=== PATIENT | female | born 1980 ===

== ENCOUNTER 2017-03-16 15:09 | Emergency (ER) | payer OTHER ==
[2017-03-16 15:09] VITALS: BMI 39.6
[2017-03-16 15:44] VITALS: TEMP 98
--- NOTE | 2017-03-16 16:14 | C.PDOC ---
History Of Present Illness 36 y/o female with Hx of Asthma brought to ED by EMS with complaints of chest tightness and sob beginning today. Patient also reports feeling anxious and tingling through fingers as well as cramping through her hands. Patient states suddenly feeling chest tightness and tried albuterol multiple of times today with no relief and decided to call 911 for sob. Upon arrival to ED vital signs were stable an patient denies headache, weakness or any other complaints at this time. Time Seen by Provider: 03/16/17 15:11 Chief Complaint (Nursing): Anxiety History Per: Patient History/Exam Limitations: no limitations Onset/Duration Of Symptoms: Days Current Symptoms Are (Timing): Still Present Past Medical History Reviewed: Historical Data, Nursing Documentation, Vital Signs Vital Signs: Last Vital Signs Temp 98.0 F 03/16/17 15:42 Pulse 95 H 03/16/17 15:42 Resp 22 03/16/17 15:42 BP 143/74 03/16/17 15:42 Pulse Ox 98 03/16/17 16:20 - Medical History PMH: Asthma, CHF, Diabetes, HTN (" MY DOCTOR TOOK ME OFF MY MEDICATION BP IS BETTER WITH WEIGHT LOSS"), Hypercholesterolemia ("MY DOCTOR DOES NOT WANT ME ON MEDICATION"), Kidney Stones, Pancreatitis (MAYBE), Chronic Kidney Disease, Chronic Pain (chr. lumbar radiculopathy) Surgical History: Endoscopy, (x 1) - [facility] Procedures CLOSED [ENDOSCOPIC] BIOPSY OF LARYNX (04/14/14) DESTRUCT LARYNX LES NEC (07/25/13) LARYGNOSCOPY AND OTH TRACHEOSCOPY (07/25/13) Family History: States: Unknown Family Hx - Social History Hx Tobacco Use: Yes Hx Alcohol Use: Yes Hx Substance Use: No (Marijuana) - Immunization History Hx Tetanus Toxoid Vaccination: No Hx Influenza Vaccination: No Hx Pneumococcal Vaccination: No Review Of Systems Except As Marked, All Systems Reviewed And Found Negative. Constitutional: Negative for: Fever, Chills, Weakness Cardiovascular: Positive for: Chest Pain Respiratory: Positive for: Shortness of Breath. Negative for: Cough Gastrointestinal: Negative for: Nausea, Vomiting, Diarrhea Skin: Negative for: Rash Neurological: Negative for: Numbness, Headache Physical Exam - Physical Exam Appears: Agitated Skin: Warm (Face flush) Head: Atraumatic, Normacephalic Eye(s): bilateral: Other (Watery Eyes) Oral Mucosa: Moist Chest: Symmetrical Cardiovascular: Rhythm Regular, No Murmur Respiratory: Normal Breath Sounds, No Rales, No Rhonchi, No Wheezing Gastrointestinal/Abdominal: Soft, No Guarding, No Rebound, Other (Obese) Extremity: Normal ROM, Capillary Refill (<2 seconds) Neurological/Psych: Oriented x3 Gait: Steady ED Course And Treatment ECG Rhythm: Sinus Rhythm (Normal) O2 Sat by Pulse Oximetry: 98 (RA) Pulse Ox Interpretation: Normal Medical Decision Making Medical Decision Making: Patient will be re-evaluated Disposition Counseled Patient/Family Regarding: Diagnosis, Need For Followup - Disposition Referrals: [facility] [Outside] Disposition: HOME/ ROUTINE Disposition Time: 16:24 Condition: STABLE Instructions: Dyspnea (ED), Hyperventilation (ED) Forms: General Discharge Instructions, Work Excuse - POA Present On Arrival: None - Clinical Impression Clinical Impression: Shortness of breath, Asthma, Hyperventilation - PA / REHAB DIRECTOR / Resident Statement MD/DO has reviewed & agrees with the documentation as recorded. MD/DO has examined the patient and agrees with the treatment plan. - Scribe Statement The provider has reviewed the documentation as recorded by the Lynneibricarda Lubin All medical record entries made by the Cezar were at my direction and personally dictated by me. I have reviewed the chart and agree that the record accurately reflects my personal performance of the history, physical exam, medical decision making, and the department course for this patient. I have also personally directed, reviewed, and agree with the discharge instructions and disposition.
[2017-03-16 16:37] VITALS: BP 122/78; PULSE 87; RESP 18; O2SAT 97
== END 2017-03-16 16:35 | disposition home or self-care (01) ==
LOC: C.ER 15:09
DX: J45.909 Unspecified asthma, uncomplicated (principal); R06.02 Shortness of breath; R06.4 Hyperventilation

== ENCOUNTER 2018-02-14 11:17 | Emergency (ER) | payer BC ==
[2018-02-14 11:17] VITALS: BMI 39.6
[2018-02-14] MEDS ORDERED: Sodium Chloride 0.9% 1,000 ML IV ONE (12:47)
[2018-02-14] MEDS ORDERED: Sodium Chloride 0.9% 1,000 ML ONE (12:54)
--- NOTE | 2018-02-14 12:57 | C.PDOC ---
History Of Present Illness 37 year old female with a history of diabetes and HTN, asthma and hypercholesterolemia presents to the emergency department with complaints of left flank pain which started last night, progressively worsening throughout the night. Patient reports she took 800mg of Motrin with no relief. Patient reports seeing a spot of blood in her urine this morning. Patient is experiencing associated nausea, but denies vomiting or prior history of any similar symptoms. Time Seen by Provider: 02/14/18 12:20 Chief Complaint (Nursing): Female Genitourinary History Per: Patient History/Exam Limitations: no limitations Onset/Duration Of Symptoms: Days (1) Current Symptoms Are (Timing): Still Present Quality Of Discomfort: "Pain" Associated Symptoms: Nausea, Urinary Symptoms (hematuria). denies: Vomiting Past Medical History Reviewed: Historical Data, Nursing Documentation, Vital Signs Vital Signs: Last Vital Signs Temp 97.9 F 02/14/18 16:09 Pulse 72 02/14/18 16:09 Resp 18 02/14/18 16:09 BP 160/84 H 02/14/18 16:09 Pulse Ox 96 02/16/18 10:21 - Medical History PMH: Asthma, CHF, Diabetes, HTN (" MY DOCTOR TOOK ME OFF MY MEDICATION BP IS BETTER WITH WEIGHT LOSS"), Hypercholesterolemia ("MY DOCTOR DOES NOT WANT ME ON MEDICATION"), Kidney Stones, Pancreatitis (MAYBE), Chronic Kidney Disease, Chronic Pain (chr. lumbar radiculopathy) Surgical History: Endoscopy, (x 1) - [facility] Procedures CLOSED [ENDOSCOPIC] BIOPSY OF LARYNX (04/14/14) DESTRUCT LARYNX LES NEC (07/25/13) LARYGNOSCOPY AND OTH TRACHEOSCOPY (07/25/13) Family History: States: No Known Family Hx - Social History Hx Tobacco Use: Yes Hx Alcohol Use: No Hx Substance Use: No (Marijuana) - Immunization History Hx Tetanus Toxoid Vaccination: Yes Hx Influenza Vaccination: No Hx Pneumococcal Vaccination: No Review Of Systems Gastrointestinal: Positive for: Nausea. Negative for: Vomiting Genitourinary: Positive for: Hematuria Musculoskeletal: Positive for: Back Pain (left flank) Physical Exam - Physical Exam Appears: Non-toxic, In Acute Distress (tearful, visibly in pain) Skin: Warm, Dry Head: Atraumatic, Normacephalic Neck: Supple Chest: Symmetrical Cardiovascular: Rhythm Regular, No Murmur Respiratory: Normal Breath Sounds, No Rales, No Rhonchi, No Wheezing Gastrointestinal/Abdominal: Bowel Sounds (good), Soft, No Tenderness, No Distention, No Guarding Back: CVA Tenderness, No Vertebral Tenderness (no midline vertebral tenderness) , Other (left flank tenderness) Neurological/Psych: Oriented x3, Normal Speech, Normal Cognition, Normal Motor, Normal Sensation ED Course And Treatment - Laboratory Results Result Diagrams: 02/14/18 12:55 02/14/18 12:55 Urine POC: Negative O2 Sat by Pulse Oximetry: 96 (RA) Pulse Ox Interpretation: Normal Progress Note: Plan: CT Abdomen and Pelvis. CMP. Liapse. CBC. NaCl IV Fluids. Toradol 30mg IVP. Urine Culture. Urinalysis Medical Decision Making Medical Decision Makin pt feeling much better after toradol, lying comfortably on bed using phone. .left flank muscle spasm palpated, ct neg for acute findings. ua +for glucose, no signs infection. d/c pt home with naproxen and flexeril. f/u pmd. Disposition Counseled Patient/Family Regarding: Studies Performed, Diagnosis, Need For Followup, Rx Given - Disposition Referrals: Dolores Tinoco MD [Staff Provider] - Disposition: HOME/ ROUTINE Disposition Time: 15:32 Condition: IMPROVED Additional Instructions: Please apply warm compresses to painful area several times a day. Avoid heavy lifting. Take medications as prescribed. Muscle relaxant makes you sleepy- do not work or drive while taking. Prescriptions: Cyclobenzaprine [Cyclobenzaprine HCl] 10 mg PO Q8 #9 tab Naproxen 500 mg PO BID #20 tab Instructions: Flank Pain (DC), Muscle Spasms (DC) Forms: General Discharge Instructions, Work/School/Gym Excuse, [facility] (Nicaraguan) - Clinical Impression Clinical Impression: Back muscle spasm - PA / PAYABLE PROCESSOR / Resident Statement MD/DO has reviewed & agrees with the documentation as recorded. - Scribe Statement The provider has reviewed the documentation as recorded by the Scribe (Delta Velasco) All medical record entries made by the Scribe were at my direction and personally dictated by me. I have reviewed the chart and agree that the record accurately reflects my personal performance of the history, physical exam, medical decision making, and the department course for this patient. I have also personally directed, reviewed, and agree with the discharge instructions and disposition.
[2018-02-14 13:03] LABS: BASO % 0.4 % (0.0-2.0); EOS # 0.1 K/uL (0.0-0.7); EOS % 0.7 % (0.0-4.0); HEMOGLOBIN 15.3 g/dL (11.0-16.0); LYMPH # 3.2 K/uL (1.0-4.3); LYMPH % 32.9 % (20.0-40.0); MEAN CORPUSCULAR HEMOGLOBIN 31.4 pg (27.0-31.0); MEAN CORPUSCULAR HGB CONC 35.3 g/dL (33.0-37.0); MEAN PLATELET VOLUME 9.8 fL (7.2-11.7); MONO # 0.5 K/uL (0.0-0.8); MONO % 5.4 % (0.0-10.0); NEUT % 60.6 % (50.0-75.0); RBC 4.86 Mil/uL (3.80-5.20); RED CELL DISTRIBUTION WIDTH 13.3 % (11.5-14.5); WHITE BLOOD COUNT 9.8 K/uL (4.8-10.8)
[2018-02-14 13:14] LABS: ALB/GLOB RATIO 1.3 (1.0-2.1); ALBUMIN 4.1 g/dL (3.5-5.0); ALT/SGPT 24 U/L (9-52); AST/SGOT 18 U/L (14-36); BLOOD UREA NITROGEN 9 mg/dL (7-17); CALCIUM 9.3 mg/dl (8.6-10.4); GFR AFRICAN-AMERICAN > 60; GFR NON-AFRICAN AMERICAN > 60; LIPASE 347 U/L (23-300)
[2018-02-14 13:15] LABS: MEAN CELL VOLUME 89.1 fL (81.0-99.0)
[2018-02-14 13:22] LABS: SQUAMOUS EPITHIAL < 1 /hpf (0-5); URINE BILIRUBIN NEGATIVE (NEGATIVE); URINE BLOOD NEGATIVE (NEGATIVE); URINE CLARITY Clear (Clear); URINE COLOR Yellow (YELLOW); URINE GLUCOSE (UA) 3+ mg/dL (Normal); URINE LEUKOCYTE ESTERASE NEG Leu/uL (Negative); URINE PROTEIN NEGATIVE (NEGATIVE); URINE UROBILINOGEN NORMAL mg/dL (0.2-1.0)
[2018-02-14 14:04] VITALS: RESP 18
--- NOTE | 2018-02-14 14:55 | CT ---
PROCEDURE: CT Abdomen and Pelvis without intravenous contrast HISTORY: left flank pain, hematuria COMPARISON: 11/01/2015 TECHNIQUE: Multiple contiguous axial images were performed through the abdomen and pelvis without the use intravenous contrast. Subsequently, sagittal and coronal reformatted images were obtained. Radiation dose: Total exam DLP = 1106 mGy-cm. This CT exam was performed using one or more of the following dose reduction techniques: Automated exposure control, adjustment of the mA and/or kV according to patient size, and/or use of iterative reconstruction technique. FINDINGS: LOWER THORAX: Unremarkable. LIVER: Unremarkable. No gross lesion or ductal dilatation. GALLBLADDER AND BILE DUCTS: Unremarkable. PANCREAS: Unremarkable. No gross lesion or ductal dilatation. SPLEEN: Unremarkable. Splenule. ADRENALS: Unremarkable. No mass. KIDNEYS AND URETERS: Unremarkable. No hydronephrosis. No solid mass. VASCULATURE: Unremarkable. No aortic aneurysm. BOWEL: Unremarkable. No obstruction. No gross mural thickening. Scattered colonic diverticuli. APPENDIX: Unremarkable. Normal appendix. PERITONEUM: Unremarkable. No free fluid. No free air. LYMPH NODES: Few shotty inguinal and para-aortic lymph nodes. Few shotty mesenteric lymph nodes in the upper abdomen. BLADDER: Distended urinary bladder. REPRODUCTIVE: Heterogeneous uterus and bilateral adnexa. Small left adnexal cyst. BONES: Degenerative changes in the spine. OTHER FINDINGS: Calcified phleboliths in the pelvis. IMPRESSION: Negative acute. Additional findings as above.
[2018-02-14 16:10] VITALS: BP 160/84; PULSE 72; TEMP 97.9
[2018-02-16 10:22] VITALS: O2SAT 96
== END 2018-02-14 16:09 | disposition home or self-care (01) ==
LOC: C.ER 11:17
DX: M62.830 Muscle spasm of back (principal); E11.9 Type 2 diabetes mellitus without complications; E78.00 Pure hypercholesterolemia, unspecified; Z72.0 Tobacco use
CPT/HCPCS: 74176; 80053; 81001; 83690; 85025; 87086; 96361; 96374; 99285; J1885; J7040

== ENCOUNTER 2018-06-12 13:43 | Emergency (ER) | payer BC ==
[2018-06-12 13:43] VITALS: BMI 39.6
[2018-06-12 14:05] VITALS: RESP 18
--- NOTE | 2018-06-12 15:02 | RAD ---
PROCEDURE: Left Knee Radiographs. HISTORY: COMPARISON: None available FINDINGS: BONES: No acute displaced fracture. JOINTS: No dislocation. JOINT EFFUSION: No significant joint effusion. OTHER FINDINGS: None. IMPRESSION: No acute displaced fracture, dislocation, or significant joint effusion identified. If symptoms persist, or if there is continued clinical concern, x-ray follow-up in 7-10 days should be considered.
--- NOTE | 2018-06-12 16:06 | VASCLAB ---
Date of service: 06/12/2018 PROCEDURE: Left Lower Extremity Venous Duplex Exam. HISTORY: left leg pain, r/o dvt PRIORS: None. TECHNIQUE: Left common femoral, femoral, popliteal and posterior tibial, peroneal and great saphenous veins were evaluated. Flow was assessed with color Doppler, compressibility, assessment of phasic flow and augmentation response. Report prepared by Pete Zimmerman, HOSSEIN, RVT FINDINGS: LEFT: 1. Common Femoral Vein: 1.1. Compressibility - Fully compressible: Thrombus - None : Flow - Phasic: Augmentation -Normal: Reflux - None. 2. Femoral Vein: 2.1. Compressibility - Fully compressible: Thrombus - None: Flow - Phasic: Augmentation -Normal: Reflux - None. 3. Popliteal Vein: 3.1. Compressibility - Fully compressible: Thrombus - None: Flow - Phasic: Augmentation -Normal: Reflux - None. 4. Posterior Tibial Vein: 4.1. Compressibility - Fully compressible: Thrombus - None: Flow - Phasic: Augmentation -Normal: Reflux - None. 5. Peroneal Vein: 5.1. Compressibility - Fully compressible: Thrombus - None: Flow - Phasic: Augmentation -Normal: Reflux - None. 6. Great Saphenous Vein: 6.1. Compressibility - Fully compressible: Thrombus - None: Flow - Phasic: Augmentation - Normal: Reflux - None. OTHER FINDINGS: IMPRESSION: No evidence of deep or superficial vein thrombosis of the left lower extremity with excellent venous flow. Normal valve function noted of the left side. Normal venous flow noted in the right common femoral vein.
--- NOTE | 2018-06-12 16:13 | C.PDOC ---
History Of Present Illness 38 year old female presents to the ED for evaluation of left knee pain that radiates down left leg since today. 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 She denies chest pain, shortness of breath, or any specific injuries at this time. Time Seen by Provider: 06/12/18 14:01 Chief Complaint (Nursing): Lower Extremity Problem/Injury History Per: Patient History/Exam Limitations: no limitations Onset/Duration Of Symptoms: Hrs Current Symptoms Are (Timing): Still Present - Knee Description Of Injury: denies: Fell, Struck With Object, Struck Against Object, Twisted Past Medical History Reviewed: Historical Data, Nursing Documentation, Vital Signs Vital Signs: Last Vital Signs Temp 98.6 F 06/12/18 16:40 Pulse 70 06/12/18 16:40 Resp 18 06/12/18 16:40 BP 143/83 06/12/18 16:40 Pulse Ox 98 06/12/18 22:09 - Medical History PMH: Asthma, CHF, Diabetes, HTN, Hypercholesterolemia, Kidney Stones, Pancreatitis (MAYBE), Chronic Kidney Disease, Chronic Pain (chr. lumbar radiculopathy) Surgical History: Endoscopy, (x 1) - [facility] Procedures CLOSED [ENDOSCOPIC] BIOPSY OF LARYNX (04/14/14) DESTRUCT LARYNX LES NEC (07/25/13) LARYGNOSCOPY AND OTH TRACHEOSCOPY (07/25/13) Family History: States: Unknown Family Hx - Social History Hx Tobacco Use: Yes Hx Alcohol Use: Yes Hx Substance Use: No - Immunization History Hx Tetanus Toxoid Vaccination: Yes Hx Influenza Vaccination: No Hx Pneumococcal Vaccination: No Review Of Systems Cardiovascular: Negative for: Chest Pain Respiratory: Negative for: Shortness of Breath Musculoskeletal: Positive for: Leg Pain (left), Other (left knee pain ) Physical Exam - Physical Exam Appears: Non-toxic, No Acute Distress, Other (obese) Skin: Normal Color, Warm, Dry Head: Atraumatic, Normacephalic Eye(s): bilateral: Normal Inspection Oral Mucosa: Moist Neck: Supple Chest: Symmetrical, No Deformity, No Tenderness Cardiovascular: Rhythm Regular, No Murmur Respiratory: Normal Breath Sounds, No Rales, No Rhonchi, No Wheezing Extremity: Tenderness (to left patella and at the medial proximal calf on palpation ), Capillary Refill (less than 2 seconds ), Swelling (mild, at left patella), No Other (erythema ) Pulses: Left Dorsalis Pedis: Normal, Right Dorsalis Pedis: Normal Neurological/Psych: Oriented x3, Normal Speech, Normal Cognition, Normal Sensation ED Course And Treatment O2 Sat by Pulse Oximetry: 98 (on RA) Pulse Ox Interpretation: Normal - Other Rad knee XR X-Ray: Viewed By Me, Read By Radiologist Interpretation: PROCEDURE: Left Knee Radiographs. HISTORY: COMPARISON: None available. FINDINGS: BONES: No acute displaced fracture. JOINTS: No dislocation. JOINT EFFUSION: No significant joint effusion. OTHER FINDINGS: None. IMPRESSION: No acute displaced fracture, dislocation, or significant joint effusion identified. If symptoms persist, or if there is continued clinical concern, x-ray follow-up in 7-10 days should be considered. Progress Note: Left knee XR and Venous Duplex Scan left lower extremity ordered and reviewed. Results are negative. Motrin PO given. MASOOD wrap applied. On reassessment, patient is resting comfortably, showing no signs of distress and is stable for discharge. Patient is advised to f/u with orthopedic care within 1 week for further evaluation. Disposition Counseled Patient/Family Regarding: Studies Performed, Diagnosis, Need For Followup, Rx Given - Disposition Referrals: Dolores Tinoco MD [Staff Provider] - Chadd Cota III, MD [Staff Provider] - [facility] [Outside] Disposition: HOME/ ROUTINE Disposition Time: 16:10 Condition: STABLE Additional Instructions: FOLLOW UP WITH ORTHOPEDICS WITHIN 1 WEEK USE MEDICATION FOR PAIN NEEDED RETURN TO EMERGENCY ROOM IF SYMPTOMS WORSEN Prescriptions: Naproxen 375 mg PO BID PRN #20 tablet PRN Reason: pain Instructions: Bursitis (DC) Forms: [employer] (Romanian) Print Language: ICELANDIC - POA Present On Arrival: None - Clinical Impression Clinical Impression: Left knee pain, Bursitis of left knee - Scribe Statement The provider has reviewed the documentation as recorded by the Scribe (Arlin Dc) Provider Attestation: All medical record entries made by the Scribe were at my direction and personally dictated by me. I have reviewed the chart and agree that the record accurately reflects my personal performance of the history, physical exam, medical decision making, and the department course for this patient. I have also personally directed, reviewed, and agree with the discharge instructions and disposition.
[2018-06-12 16:41] VITALS: BP 143/83; PULSE 70; TEMP 98.6
[2018-06-12 22:06] VITALS: O2SAT 98
== END 2018-06-12 16:43 | disposition home or self-care (01) ==
LOC: C.ER 13:43
DX: M70.52 Other bursitis of knee, left knee (principal); M25.562 Pain in left knee

== ENCOUNTER 2018-11-15 17:20 | Emergency (ER) | payer BC ==
[2018-11-15 17:20] VITALS: BMI 39.6
[2018-11-15 17:32] VITALS: BP 155/85; PULSE 78; RESP 18; TEMP 98.1; O2SAT 98
--- NOTE | 2018-11-15 18:46 | C.PDOC ---
History Of Present Illness Patient is a 38 year old female who presents to the ED c/o dental pain for the last 3 days. Patient states that the pain has worsened today and notes that she does have a broken tooth. Patient denies any fever or pain to the maxillary sinus area. Time Seen by Provider: 11/15/18 17:35 Chief Complaint (Nursing): Dental Pain History Per: Patient History/Exam Limitations: no limitations Onset/Duration Of Symptoms: Days (3) Current Symptoms Are (Timing): Still Present Quality: Positive for: "Pain" (dental ) Recent travel outside of the [place]: No Additional History Per: Patient Past Medical History Reviewed: Historical Data, Nursing Documentation, Vital Signs Vital Signs: Last Vital Signs Temp 98.1 F 11/15/18 17:28 Pulse 78 11/15/18 17:28 Resp 18 11/15/18 17:28 BP 155/85 H 11/15/18 17:28 Pulse Ox 98 11/15/18 17:28 - Medical History PMH: Asthma, CHF, Diabetes, HTN, Hypercholesterolemia, Kidney Stones, Pancreatitis (MAYBE), Chronic Kidney Disease, Chronic Pain (chr. lumbar radiculopathy) Surgical History: Endoscopy, (x 1) - [facility] Procedures CLOSED [ENDOSCOPIC] BIOPSY OF LARYNX (04/14/14) DESTRUCT LARYNX LES NEC (07/25/13) LARYGNOSCOPY AND OTH TRACHEOSCOPY (07/25/13) Family History: States: Unknown Family Hx - Social History Hx Tobacco Use: Yes Hx Alcohol Use: Yes Hx Substance Use: Yes - Immunization History Hx Tetanus Toxoid Vaccination: Yes Hx Influenza Vaccination: Yes Hx Pneumococcal Vaccination: Yes Review Of Systems Except As Marked, All Systems Reviewed And Found Negative. Constitutional: Negative for: Fever ENT: Negative for: Other (pain to maxillary sinus area. positive for dental pain ) Physical Exam - Physical Exam Appears: Non-toxic, No Acute Distress Skin: Normal Color, Warm, Dry Head: Atraumatic, Normacephalic Oral Mucosa: Moist Teeth: Other (Tooth number 4 is broken with exposed root, no palpable abcess) Neck: Normal ROM, Supple Chest: Symmetrical, No Deformity Cardiovascular: Rhythm Regular Respiratory: Normal Breath Sounds Gastrointestinal/Abdominal: Normal Exam, Soft, No Tenderness Extremity: Normal ROM Neurological/Psych: Oriented x3 ED Course And Treatment O2 Sat by Pulse Oximetry: 98 (on RA) Pulse Ox Interpretation: Normal Medical Decision Making Medical Decision Making: Plan: Cleocin 300mg PO Ultram 50mg PO Disposition - Disposition Referrals: Glenroy Kaplan, [Non-Staff] - Disposition: HOME/ ROUTINE Disposition Time: 18:00 Condition: GOOD Additional Instructions: LACEY STALLINGS, thank you for letting us take care of you today. Your provider was Weston Santoro DO and you were treated for DENTAL PAIN. The emergency medical care you received today was directed at your acute symptoms. If you were prescribed any medication, please fill it and take as directed. It may take several days for your symptoms to resolve. Return to the Emergency Department if your symptoms worsen, do not improve, or if you have any other problems. Please contact your doctor or call one of the physicians/clinics you have been referred to that are listed on the Patient Visit Information form that is included in your discharge packet. Bring any paperwork you were given at discharge with you along with any medications you are taking to your follow up visit. Our treatment cannot replace ongoing medical care by a primary care provider outside of the emergency department. Thank you for allowing the [facility] team to be part of your care today. Follow up with your dentist in 1-2 days for re-evaluation and further management. Prescriptions: Clindamycin [Cleocin] 300 mg PO Q6 #20 cap traMADol [Ultram] 50 mg PO Q8 PRN #15 tab PRN Reason: Pain, Severe (8-10) Instructions: Dental Pain (DC) Forms: [employer] (Uzbek) - Clinical Impression Clinical Impression: Dental caries - Scribe Statement The provider has reviewed the documentation as recorded by the Cezar Sanders All medical record entries made by the Lynneibricarda were at my direction and personally dictated by me. I have reviewed the chart and agree that the record accurately reflects my personal performance of the history, physical exam, medical decision making, and the department course for this patient. I have also personally directed, reviewed, and agree with the discharge instructions and disposition.
== END 2018-11-15 18:02 | disposition home or self-care (01) ==
LOC: C.ER 17:20
DX: K02.9 Dental caries, unspecified (principal)

== ENCOUNTER 2018-12-12 10:50 | Emergency (ER) | payer BC | END 2018-12-12 14:04 | disposition home or self-care (01) | LOC: C.ER 10:50 ==

== ENCOUNTER 2019-02-19 18:23 | Emergency (ER) | payer SELFPAY ==
[2019-02-19 18:47] VITALS: BMI 40.0
[2019-02-19 18:52] VITALS: O2SAT 98
[2019-02-19] MEDS ORDERED: Albuterol-Ipratrop 3 mg / 0.5 (3 ml) UD INH STA ×4 (19:05→23:20)
--- NOTE | 2019-02-19 19:13 | C.PDOC ---
History Of Present Illness Patient is a 38 year old female biba, with a PMHx of asthma, who presents to the ED c/o cough, congestion, and anterior chest wall tightness that began today while at work. Patient denies any fever, chills, SOB. Chief Complaint (Nursing): Cough, Cold, Congestion History Per: Patient History/Exam Limitations: no limitations Onset/Duration Of Symptoms: Hrs Current Symptoms Are (Timing): Still Present Recent travel outside of the [place]: No Additional History Per: Patient Past Medical History Reviewed: Historical Data, Nursing Documentation, Vital Signs Vital Signs: Last Vital Signs Temp 98.0 F 02/19/19 18:48 Pulse 87 02/19/19 18:48 Resp 20 02/19/19 18:48 BP 142/81 02/19/19 18:48 Pulse Ox 98 02/19/19 18:48 Primary Care Provider: Dolores Tinoco - Medical History PMH: Asthma, CHF, Diabetes, HTN, Hypercholesterolemia, Kidney Stones, Pancreatitis (MAYBE), Chronic Kidney Disease, Chronic Pain (chr. lumbar radiculopathy) Surgical History: Endoscopy, (x 1) - [facility] Procedures CLOSED [ENDOSCOPIC] BIOPSY OF LARYNX (04/14/14) DESTRUCT LARYNX LES NEC (07/25/13) LARYGNOSCOPY AND OTH TRACHEOSCOPY (07/25/13) Family History: States: Unknown Family Hx - Social History Hx Tobacco Use: Yes Hx Alcohol Use: Yes Hx Substance Use: Yes - Immunization History Hx Tetanus Toxoid Vaccination: Yes Hx Influenza Vaccination: Yes Hx Pneumococcal Vaccination: Yes Review Of Systems Constitutional: Negative for: Fever, Chills Cardiovascular: Positive for: Chest Pain (anterior chest wall tightness) Respiratory: Positive for: Cough Physical Exam - Physical Exam Appears: Non-toxic, No Acute Distress Skin: Warm, Dry Head: Atraumatic, Normacephalic Eye(s): bilateral: Normal Inspection Oral Mucosa: Moist Neck: Normal ROM, Supple Chest: Tenderness (anterior chest wall) Cardiovascular: Rhythm Regular, No Murmur Respiratory: No Rales, Rhonchi (bilateral), Wheezing (bilateral), Other (mildly dyspneic) Gastrointestinal/Abdominal: Soft, No Tenderness, No Distention, No Guarding, No Rebound Neurological/Psych: Oriented x3, Normal Speech, Normal Cognition ED Course And Treatment - Laboratory Results Result Diagrams: 02/19/19 19:30 02/19/19 19:30 ECG: Interpreted By Me, Viewed By Me ECG Rhythm: Sinus Rhythm ECG Interpretation: No Acute Changes, Abnormal Interpretation Of ECG: NSR, LVH, abnormal tracings. Rate From EC O2 Sat by Pulse Oximetry: 98 (on RA) Pulse Ox Interpretation: Normal - Radiology CXR: Interpreted by Me, Viewed By Me CXR Interpretation: Yes: No Acute Disease. No: Infiltrates (normal chest film) - CT Scan/US CT chest Other Rad Studies (CT/US): Read By Radiologist, Radiology Report Reviewed CT/US Interpretation: EXAM: CTA Chest with Intravenous Contrast for Pulmonary Embolism. CLINICAL HISTORY: Sob elevated ddimer. TECHNIQUE: Axial CTA images of the chest with intravenous contrast using a pulmonary embolism protocol. Reconstructed images were created and reviewed. 0.00 mGy-cm. CONTRAST: With; 100MLS VISI 320 was administered without incident. COMPARISON: None p rovided. FINDINGS: PULMONARY ARTERIES. No evidence of central or segmental pulmonary embolism is seen. AORTA. There is no evidence for aneurysm or dissection of the thoracic aorta. LUNGS. The lungs appear clear. PLEURAL SPACES. No pneumothorax evident. No pleural effusions. HEART. Heart size is within normal limits. No pericardial effusion. LYMPH NODES. No lymphadenopathy is evident. BONES. No focal osseous abnormality or acute fracture. UPPER ABDOMEN. Images of the upper abdomen demonstrates hepatomegaly. The liver measured 17.7 cm in the midclavicular line. IMPRESSION: 1. Unremarkable pulmonary embolism protocol CTA of the chest. 2. Hepatomegaly. . Electronically signed on February 19, 2019 11:16:59 PM EDT by: Weston Chinchilla M.D., M.B.A., Certified By [employer]. Fellowship Trained MRI and CT Specialist Medical Decision Making Medical Decision Making: Plan: EKG Labs CXR Nebulizer Duoneb 3mg/0.5mg Solu-Medrol 125mg IV Disposition Doctor Will See Patient In The: Hospital Counseled Patient/Family Regarding: Diagnosis - Disposition Referrals: Dolores Tinoco MD [Staff Provider] - Disposition: HOME/ ROUTINE Disposition Time: 23:29 Condition: STABLE Additional Instructions: CONTINUE NEBULIZER AT HOME. Prescriptions: Methylprednisolone [Medrol Dose Pack (21 tabs)] 4 mg PO DAILY #21 mg Instructions: Asthma in Adults Forms: [employer] ([employer]) - POA Present On Arrival: None - Clinical Impression Clinical Impression: Acute asthma exacerbation - Scribe Statement The provider has reviewed the documentation as recorded by the Scribricarda Sanders All medical record entries made by the Scribe were at my direction and personally dictated by me. I have reviewed the chart and agree that the record accurately reflects my personal performance of the history, physical exam, medical decision making, and the department course for this patient. I have also personally directed, reviewed, and agree with the discharge instructions and disposition.
[2019-02-19] MEDS ORDERED: Albuterol-Ipratrop 3 mg / 0.5 (3 ml) UD ONE ×2 (19:34→23:34)
[2019-02-19 19:36] LABS: BASO # 0.1 K/uL (0.0-0.2); BASO % 0.5 % (0.0-2.0); EOS # 0.1 K/uL (0.0-0.7); EOS % 0.9 % (0.0-4.0); HEMOGLOBIN 15.7 g/dL (11.0-16.0); LYMPH # 4.2 K/uL (1.0-4.3); LYMPH % 38.6 % (20.0-40.0); MEAN CELL VOLUME 88.7 fL (81.0-99.0); MEAN CORPUSCULAR HEMOGLOBIN 31.4 pg (27.0-31.0); MEAN CORPUSCULAR HGB CONC 35.4 g/dL (33.0-37.0); MEAN PLATELET VOLUME 9.9 fL (7.2-11.7); MONO # 0.5 K/uL (0.0-0.8); MONO % 4.7 % (0.0-10.0); NEUT % 55.3 % (50.0-75.0); RBC 4.98 Mil/uL (3.80-5.20); RED CELL DISTRIBUTION WIDTH 13.3 % (11.5-14.5); WHITE BLOOD COUNT 10.9 K/uL (4.8-10.8)
[2019-02-19 19:55] LABS: BLOOD UREA NITROGEN 9 mg/dL (7-17); CALCIUM 9.5 mg/dl (8.6-10.4); GFR NON-AFRICAN AMERICAN > 60
[2019-02-19 20:02] LABS: ALB/GLOB RATIO 1.5 (1.0-2.1); ALBUMIN 4.9 g/dL (3.5-5.0); ALT/SGPT < 6 U/L (9-52); AST/SGOT 59 U/L (14-36)
[2019-02-19 20:04] LABS: B-TYPE NATRIURETIC PEPTIDE 41.3 pg/mL (0-450)
[2019-02-19] MEDS ORDERED: Iodixanol 320 MG/ML 100 ML BOTTLE IV ONE (21:21)
[2019-02-19 22:03] VITALS: RESP 16
[2019-02-19 23:52] VITALS: BP 156/79; PULSE 105; TEMP 98.1
--- NOTE | 2019-02-20 09:29 | RAD ---
Date of service: 02/19/2019 HISTORY: Shortness of breath COMPARISON: No prior. TECHNIQUE: Chest PA and lateral FINDINGS: LUNGS: No active pulmonary disease. Small nodular density at the left lung base may represent confluence of shadows with ribs and vessels. PLEURA: No significant pleural effusion identified. No pneumothorax apparent. CARDIOVASCULAR: No aortic atherosclerotic calcification present. Normal cardiac size. OSSEOUS STRUCTURES: No significant abnormalities. VISUALIZED UPPER ABDOMEN: Normal. OTHER FINDINGS: None. IMPRESSION: No active disease.
--- NOTE | 2019-02-20 10:36 | CT ---
Date of service: 02/19/2019 CTA chest PE protocol Indication: SOB/ elevated D-dimer Technique: Contiguous axial images were obtained through the chest with intravenous contrast enhancement. Sagittal and coronal reconstructions were generated and reviewed. This CT exam was performed using 1 or more of the following dose reduction techniques: Automated exposure control, adjustment of the MAA and/or kV according to patient size, and/or use of iterative reconstruction technique. IV contrast: 100 mL Visipaque 320 IV Radiation dose (DLP): 601.27 MGy-cm. Comparison: Chest x-ray performed 02/19/19 Findings: Visualized portions of the inferior thyroid gland appear unremarkable. The mediastinal and hilar vascular structures appear within normal limits. The heart appears within normal limits of size. There is suboptimal opacification of the pulmonary arteries precluding adequate evaluation for pulmonary embolus. Given this limitation, there are no visible intraluminal filling defects within the central pulmonary arteries to suggest central pulmonary embolism. No focal consolidation. No pleural effusion. No pneumothorax. No suspicious pulmonary nodules measuring greater than 5 mm. Limited visualized portions of the upper abdomen appears grossly unremarkable. No acute osseous abnormality is detected. Impression: There is suboptimal opacification of the pulmonary arteries precluding adequate evaluation for pulmonary embolus. Given this limitation, there are no visible intraluminal filling defects within the central pulmonary arteries to suggest central pulmonary embolism. Preliminary impression was provided by [employer]. Study marked for PA review.
== END 2019-02-19 23:54 | disposition home or self-care (01) ==
LOC: C.ER 18:23
DX: J45.901 Unspecified asthma with (acute) exacerbation (principal); Z87.891 Personal history of nicotine dependence
CPT/HCPCS: 71046; 71275; 80053; 81025; 82948; 83880; 84484; 85025; 85378; 99284; J2930; Q9967